=== PATIENT | male | born 1935 | race Caucasian/White ===

== ENCOUNTER → 2018-01-02 14:06 | Outpatient (CLI) | payer MEDICARE, BC | END | disposition home or self-care (01) | LOC: D.MRI 14:06 | DX: M48.54XA Collapsed vertebra, not elsewhere classified, thoracic region, initial encounter for fracture (principal); X58.XXXA Exposure to other specified factors, initial encounter ==

== ENCOUNTER → 2018-01-08 13:45 | Outpatient (CLI) | payer MEDICARE, BC | END | disposition home or self-care (01) | LOC: D.CT 13:45 | DX: R93.5 Abnormal findings on diagnostic imaging of other abdominal regions, including retroperitoneum (principal) ==

== ENCOUNTER → 2018-06-21 12:32 | Outpatient (CLI) | payer MEDICARE, BC | END | disposition home or self-care (01) | LOC: D.US 12:32 | DX: I70.8 Atherosclerosis of other arteries (principal) ==

== ENCOUNTER → 2018-06-26 14:23 | Outpatient (CLI) | payer MEDICARE, BC | END | disposition home or self-care (01) | LOC: D.MRI 14:23 | DX: C90.00 Multiple myeloma not having achieved remission (principal) ==